=== PATIENT | male | born 1985 | race Caucasian/White ===

== ENCOUNTER 2016-09-14 22:54 | Inpatient (IN) | payer OTHER ==
[2016-09-14 23:30] VITALS: BMI 39.6
--- NOTE | 2016-09-14 23:41 | HP ---
COWS - Scale Resting Pulse: 1= [place] 81-100 Sweatin= Chills/Flushing Restless Observation: 1= Difficult to Sit Still Pupil Size: 0= Normal to Room Light Bone or Joint Aches: 2= Severe Diffuse Aches Runny Nose/ Eye Tearin= Runny Nose/Eyes GI Upset > 30mins: 1= Stomach Cramp Tremor Observation: 2= Slight Tremor Visible Yawning Observation: 1= 1-2x During Session Anxiety or Irritability: 2=Irritable/Anxious Goose Flesh Skin: 3=Piloerection COWS Score: 16 CIWA Score - CIWA Score Nausea/Vomitin-Mild Nausea/No Vomiting Muscle Tremors: 4-Moderate,w/Arms Extend Anxiety: 4-Mod. Anxious/Guarded Agitation: 4-Moderately Restless Paroxysmal Sweats: 1-Minimal Palms Moist Orientation: 1-Uncertain about Date Tacttile Disturbances: 0-None Auditory Disturbances: 0-None Visual Disturbances: 0-None Headache: 2-Mild CIWA-Ar Total Score: 17 Admission ROS S - HPI Chief Complaint: withdrawal sx Allergies/Adverse Reactions: Allergies Allergy/AdvReac Type Severity Reaction Status Date / Time cyclobenzaprine HCl Allergy Severe Hives Verified 09/14/16 23:37 [From Flexeril] History of Present Illness: 30 years old male with long history of opiate xanax klonopin nicotine alcohol dependence has arthritis of the lumbar and cellulitis and bipolar ii is admitted to detox Exam Limitations: No Limitations - Ebola screening Have you traveled outside of the country in the last 21 days: No (N) Have you had contact with anyone from an Ebola affected area: No Have you been sick,other than usual withdrawal symptoms: No Do you have a fever: No - Review of Systems Constitutional: Chills, Changes in sleep, Weight Stable EENT: reports: Other (eye glasses) Respiratory: reports: No Symptoms reported Cardiac: reports: No Symptoms Reported GI: reports: Nausea, Poor Fluid Intake, Indigestion, Abdominal cramping : reports: No Symptoms Reported Musculoskeletal: reports: Back Pain, Joint Pain, Muscle Pain, Neck Pain Integumentary: reports: No Symptoms Reported Neuro: reports: Tremors Endocrine: reports: No Symptoms Reported Hematology: reports: No Symptoms Reported Psychiatric: reports: Judgement Intact Other Systems: Reviewed and Negative Patient History - Patient Medical History Hx Anemia: No Hx Asthma: No Hx Chronic Obstructive Pulmonary Disease (COPD): No Hx Cancer: No Hx Cardiac Disorders: No Hx Congestive Heart Failure: No Hx Hypertension: No Hx Hypercholesterolemia: No Hx Pacemaker: No HX Cerebrovascular Accident: No Hx Seizures: No Hx Dementia: No Hx Diabetes: No Hx Gastrointestinal Disorders: Yes Hx Liver Disease: No Hx Genitourinary Disorders: No Hx Sexually Transmitted Disorders: No Hx Renal Disease (ESRD): No Hx Thyroid Disease: No Hx Human Immunodeficiency Virus (HIV): No (last 2009) Hx Hepatitis C: No Hx Depression: No (insomnia) Hx Suicide Attempt: No Hx Bipolar Disorder: Yes Hx Schizophrenia: No - Patient Surgical History Past Surgical History: Yes Hx Neurologic Surgery: No Hx Cataract Extraction: No Hx Cardiac Surgery: No Hx Lung Surgery: No Hx Breast Surgery: No Hx Breast Biopsy: No Hx Abdominal Surgery: No Hx Appendectomy: No Hx Cholecystectomy: No Hx Genitourinary Surgery: No Hx Orthopedic Surgery: No Other Surgical History: back surgery in Anesthesia Reaction: No - PPD History Previous Implant?: Yes Documented Results: Negative w/o proof Implanted On Prior [facility] Admission?: Yes Date: 10/09/14 PPD to be Administered?: Yes - Smoking Cessation Smoking history: Current every day smoker Have you smoked in the past 12 months: Yes Aproximately how many cigarettes per day: 5 Cigars Per Day: 0 Hx Chewing Tobacco Use: No Initiated information on smoking cessation: Yes 'Breaking Loose' booklet given: 09/14/16 - Substance & Tx. History Hx Alcohol Use: Yes Hx Substance Use: Yes Substance Use Type: Alcohol, Marijuana, Opiates, Tranquilizers Hx Substance Use Treatment: Yes - Substances Abused Alcohol Route: Oral Frequency: 3-6 times per week Amount used: 3pints volka Age of first use: 18 Date of Last Use: 09/13/16 cocaine Route: Injection Frequency: Daily Amount used: 2 g Age of first use: 29 Date of Last Use: 09/14/16 Heroin Route: Injection Frequency: Daily Amount used: 35 bags Age of first use: 25 Date of Last Use: 09/14/16 Alprazolam (Xanax) Route: Oral Frequency: Daily Amount used: 8 mg Age of first use: 28 Date of Last Use: 04/07/17 Benzodiazepine (Klonopin) Route: Oral Frequency: Daily Amount used: 2 mg Age of first use: 17 Date of Last Use: 09/13/16 Family Disease History - Family Disease History Family Disease History: Diabetes: Mother (depression), Heart Disease: Father, Other: Grandparent (bipolar disorder), Mother Admission Physical Exam [facility] - Vital Signs Vital Signs: Vital Signs - 24 hr 09/14/16 23:27 Temperature 97.4 F L Pulse Rate 81 Respiratory 20 Rate Blood Pressure 114/69 - Physical General Appearance: Yes: Appropriately Dressed, Mild Distress (treated at [facility] for cellulitis), Obese, Tremorous, Irritable, Sweating, Anxious HEENTM: Yes: Hearing grossly Normal, Normal ENT Inspection, Normocephalic, Normal Voice Respiratory: Yes: Chest Non-Tender, Lungs Clear, Normal Breath Sounds, No Respiratory Distress, No Accessory Muscle Use Neck: Yes: Supple, Trachea in good position Breast: Yes: Breasts Symetrical Cardiology: Yes: Regular Rhythm, Regular Rate, S1, S2 Abdominal: Yes: Non Tender, Soft Genitourinary: Yes: Within Normal Limits Back: Yes: Normal Inspection Musculoskeletal: Yes: full range of Motion, Gait Steady, Joint swelling (left axillary), Muscle Pain (both dorsal of hands) Extremities: Yes: Normal Range of Motion, Non-Tender, Tremors Neurological: Yes: Alert, Motor Strength 5/5, Normal Response, Depressed Affect Integumentary: Yes: Warm, Erythema (swell, pain), Track Deleon Lymphatic: Yes: Within Normal Limits - Diagnostic (1) Nicotine dependence Current Visit: Yes Status: Acute Qualifiers: Nicotine product type: cigarettes Substance use status: in withdrawal Qualified Code(s): F17.213 - Nicotine dependence, cigarettes, with withdrawal (2) Opioid dependence with withdrawal Current Visit: Yes Status: Acute (3) Alcohol dependence with uncomplicated withdrawal Current Visit: Yes Status: Acute (4) Cocaine dependence with withdrawal Current Visit: Yes Status: Chronic (5) GERD (gastroesophageal reflux disease) Current Visit: Yes Status: Acute Qualifiers: Esophagitis presence: without esophagitis Qualified Code(s): K21.9 - Gastro-esophageal reflux disease without esophagitis (6) Cellulitis Current Visit: Yes Status: Acute Qualifiers: Site of cellulitis: extremity Site of cellulitis of extremity: upper extremity Laterality: unspecified laterality Qualified Code(s): L03.119 - Cellulitis of unspecified part of limb (7) Arthritis, lumbar spine Current Visit: Yes Status: Chronic (8) Bipolar II disorder Current Visit: Yes Status: Suspected Comment: Patient's self-report. Cleared for Admission [facility] - Detox or Rehab [facility] Level of Care: Medically Managed Detox Regimen/Protocol: Methadone/Valium [facility] Breath Alcohol Content Breath Alcohol Content: 0 Urine Drug Screen - Results Drug Screen Negative: No Urine Drug Screen Results: THC-Marijuana, MIKA-Cocaine, OPI-Opiates, BZO- Benzodiazepines, OXY-Oxycodone
[2016-09-14] MEDS ORDERED: IBUPROFEN 400 MG TABLET (FP) PO PRN (23:55)
[2016-09-14] MEDS ORDERED: MAGNESIUM CITRATE 300 ML BOTTLE PO PRN (23:55)
[2016-09-14] MEDS ORDERED: P-EPHED 60MG/TRIPROLIDI 2.5MG TABLET PO PRN (23:55)
[2016-09-14] MEDS ORDERED: NICOTINE POLACRILEX 2 MG GUM BC PRN (23:55)
[2016-09-14] MEDS ORDERED: MAGNESIUM HYDROX 2400MG/30ML ORAL SUSPENSION 30 ML CUP PO PRN (23:55)
[2016-09-14] MEDS ORDERED: MAG HYDROX/AL HYDROX/SIMETH 30 ML UNIT-DOSE CUP PO PRN (23:55)
[2016-09-14] MEDS ORDERED: guaiFENesin/D-METHORPHAN HB 10 ML UNIT-DOSE CUPS PO PRN (23:55)
[2016-09-14] MEDS ORDERED: LOPERAMIDE HCL 2 MG CAPSULE PO PRN (23:55)
[2016-09-14] MEDS ORDERED: MENTHOL/PHENOL 1 EACH UD MM PRN (23:55)
[2016-09-15] MEDS ORDERED: CLINDAMYCIN HCL 300 MG CAPSULE PO SCH
[2016-09-15] MEDS ORDERED: METHADONE HCL 10 MG TABLET (FOR DETOX USE ONLY) PO ONE ×3 (00:09→23:00)
[2016-09-15] MEDS ORDERED: diazePAM 5 MG TABLET PO ONE (00:09)
[2016-09-15] MEDS: diphenhydrAMINE HCL 50 MG CAPSULE PO PRN ×2 (01:49→22:11)
[2016-09-15] MEDS: CLINDAMYCIN HCL 150 MG CAPSULE (FP) PO SCH ×4 (06:05→23:29)
[2016-09-15] MEDS: diazePAM 5 MG TABLET PO SCH ×3 (06:05→22:10)
[2016-09-15] MEDS: GABAPENTIN 300 MG CAPSULE (FP) PO SCH ×3 (06:05→22:10)
[2016-09-15] MEDS: diazePAM 5 MG TABLET PO PRN ×2 (08:32→17:53)
[2016-09-15 10:02] LABS: MCH 27.9 pg (25.7-33.7); MCHC 32.6 g/dl (32.0-35.9); MEAN CELL VOLUME 85.7 fl (80-96); MEAN PLT VOLUME 9.5 fl (7.5-11.1); PLATELET COUNT 219 K/MM3 (134-434); RDW 14.8 % (11.9-15.9); WHITE BLOOD COUNT 8.5 K/mm3 (4.0-10.0)
[2016-09-15] MEDS: RANITIDINE HCL 150 MG TABLET (FP) PO SCH ×2 (10:19→22:10)
[2016-09-15] MEDS: PRENATAL VITAMINS W/ FOLIC ACID TABLET (FP) PO SCH (10:19)
[2016-09-15] MEDS: NICOTINE 14 MG/24 HOURS TOPICAL PATCH TD SCH (10:20)
[2016-09-15 10:40] LABS: ALBUMIN 2.6 g/dl (3.4-5.0); ALK PHOS 65 U/L (45-117); ANION GAP 8 (8-16); BILIRUBIN,TOTAL 0.3 mg/dL (0.2-1.0); CALCIUM 7.9 mg/dL (8.5-10.1); CO2 26 mmol/L (21-32); COCKROFT - GAULT 258.38; CREATININE 0.7 mg/dL (0.7-1.3); GLUCOSE,RANDOM 85 mg/dL (74-106); SGOT/AST 7 U/L (15-37); SGPT/ALT 14 U/L (12-78); TOT PROT 5.6 g/dl (6.4-8.2)
[2016-09-15] MEDS: METHOCARBAMOL 500 MG TABLET PO SCH ×4 (11:24→22:10)
--- NOTE | 2016-09-15 12:51 | CONSULT ---
[facility] Psychiatric Consult - Data Date of interview: 09/15/16 Admission source: [facility] Identifying data: Readmission to [facility] for this 30 y/o male seeking detox treatment for alcohol,xanax,cocaine,heroin and marijuana dependence.Patient is single without children,domiciled and employed as a manager transfer. Substance Abuse History: - Smoking Cessation. Smoking history: Current every day smoker. Have you smoked in the past 12 months: Yes. Aproximately how many cigarettes per day: 5. Cigars Per Day: 0. Hx Chewing Tobacco Use: No. Initiated information on smoking cessation: Yes. 'Breaking Loose' booklet given : 09/14/16. - Substance & Tx. History. Hx Alcohol Use: Yes. Hx Substance Use : Yes. Substance Use Type: Alcohol, Marijuana, Opiates, Tranquilizers. Hx Substance Use Treatment: Yes. - Substances Abused. Alcohol. Route: Oral. Frequency: 3-6 times per week. Amount used: 3pints volka. Age of first use: 18. Date of Last Use: 09/13/16. cocaine. Route: Injection. Frequency: Daily. Amount used: 2 g. Age of first use: 29. Date of Last Use: 09/14/16. * * Heroin. Route: Injection. Frequency: Daily. Amount used: 35 bags. Age of first use: 25. Date of Last Use: 09/14/16. Alprazolam (Xanax). Route: Oral. Frequency: Daily. Amount used: 8 mg. Age of first use: 28. Date of Last Use: 09/14/16. Benzodiazepine (Klonopin). Route: Oral. Frequency: Daily. Amount used: 2 mg. Age of first use: 17. Date of Last Use: 09/13/16. Confirmed by patient. Medical History: History of laminectomy and chronic lower back pain. Psychiatric History: Diagnosed with Bipolar Disorder and prescribed seroquel 100 mg po bid by his primary care doctor.Also prescribed xanax and clonazepam as per self-report.Noted report of ADHD at age 21.Still on psychostimulant medications (adderall 20 mg po bid).Mr Roberts denies history of psychiatric hospitalizations.No background of suicide attempts. Physical/Sexual Abuse/Trauma History: No history. Additional Comment: Urine Drug Screen Results: THC-Marijuana, MIKA-Cocaine, OPI- Opiates, BZO-Benzodiazepines, OXY-Oxycodone.Noted. Mental Status Exam - Mental Status Exam Alert and Oriented to: Time, Place, Person Cognitive Function: Good Patient Appearance: Well Groomed Mood: Nervous, Withdrawn, Anxious Affect: Mood Congruent Patient Behavior: Sedated (light sedation), Fatigued, Cooperative Speech Pattern: Clear Voice Loudness: Normal Thought Process: Goal Oriented Thought Disorder: Not Present Hallucinations: Denies Suicidal Ideation: Denies Homicidal Ideation: Denies Insight/Judgement: Poor Sleep: Poorly, Difficulty falling asleep Appetite: Good Muscle strength/Tone: Normal Gait/Station: Normal Psychiatric Findings - Problem List ([place] 1, 2,3) (1) Alcohol dependence with uncomplicated withdrawal Current Visit: Yes Status: Acute (2) Opioid dependence with withdrawal Current Visit: Yes Status: Acute (3) Cocaine dependence with withdrawal Current Visit: Yes Status: Acute (4) Marijuana dependence Current Visit: Yes Status: Acute (5) Nicotine dependence Current Visit: Yes Status: Acute Qualifiers: Nicotine product type: cigarettes Substance use status: in withdrawal Qualified Code(s): F17.213 - Nicotine dependence, cigarettes, with withdrawal (6) Benzodiazepine dependence Current Visit: Yes Status: Acute (7) Drug-induced mood disorder Current Visit: Yes Status: Acute (8) Bipolar II disorder Current Visit: Yes Status: Chronic Comment: Patient's self-report. (9) GERD (gastroesophageal reflux disease) Current Visit: Yes Status: Chronic Qualifiers: Esophagitis presence: without esophagitis Qualified Code(s): K21.9 - Gastro-esophageal reflux disease without esophagitis (10) Low back pain Current Visit: Yes Status: Chronic (11) Insomnia Current Visit: Yes Status: Acute - Initial Treatment Plan Initial Treatment Plan: Psychoeducation.Detoxification in progress.Seroquel 100 mg po bid.Side effects/benefits discussed with the patient.He is in agreement with this plan of care.Observation.Pharmacy claims are revisited :filled scripts for seroquel and adderall on 09/13/16 @ [facility] # [id number].NO need for scripts at discharge.
[2016-09-15 12:59] LABS: HIV 1 & 2 AB NEGATIVE; HIV 1 AGp24 NEGATIVE
--- NOTE | 2016-09-15 15:00 | PN ---
[facility] CIWA - CIWA Score Nausea/Vomitin-No Nausea/No Vomiting Muscle Tremors: 3 Anxiety: 3 Agitation: 3 Paroxysmal Sweats: 3 Orientation: 0-Oriented Tacttile Disturbances: 1-Very Mild Itch/Numbness Auditory Disturbances: 0-None Visual Disturbances: 0-None Headache: 0-None Present CIWA-Ar Total Score: 13 [facility] COWS - Scale Resting Pulse: 1= [place] 81-100 Sweatin=Flushed/Facial Moisture Restless Observation: 1= Difficult to Sit Still Pupil Size: 0= Normal to Room Light Bone or Joint Aches: 1= Mild Discomfort Runny Nose/ Eye Tearin= Runny Nose/Eyes GI Upset > 30mins: 1= Stomach Cramp Tremor Observation of Outstretched Hands: 2= Slight Tremor Visible Yawning Observation: 1= 1-2x During Session Anxiety or Irritability: 2=Irritable/Anxious Goose Flesh Skin: 0=Smooth Skin COWS Score: 13 S Progress Note (SOAP) Subjective: Sweating,interrupted sleep,restless,tremors,anxiety,muscle aches. Objective: 09/15/16 14:58 Vital Signs - 8 hr 09/15/16 11:05 Temperature 97.3 F L Pulse Rate 94 H Respiratory 20 Rate Blood Pressure 121/76 Laboratory Tests 09/15/16 09/15/16 09/15/16 08:00 08:00 08:00 WBC 8.5 RBC 4.65 Hgb 13.0 Hct 39.9 MCV 85.7 MCHC 32.6 RDW 14.8 Plt Count 219 MPV 9.5 Sodium 143 Potassium 4.2 Chloride 109 H Carbon Dioxide 26 Anion Gap 8 BUN 15 D Creatinine 0.7 D Creat Clearance w eGFR > 60 Random Glucose 85 Calcium 7.9 L Total Bilirubin 0.3 D AST 7 L D ALT 14 D Alkaline Phosphatase 65 Total Protein 5.6 L Albumin 2.6 L D RPR Titer Nonreactive HIV 1&2 Antibody Screen HIV P24 Antigen 09/15/16 08:00 WBC RBC Hgb Hct MCV MCHC RDW Plt Count MPV Sodium Potassium Chloride Carbon Dioxide Anion Gap BUN Creatinine Creat Clearance w eGFR Random Glucose Calcium Total Bilirubin AST ALT Alkaline Phosphatase Total Protein Albumin RPR Titer HIV 1&2 Antibody Screen Negative HIV P24 Antigen Negative labs noted Assessment: 09/15/16 14:59 Withdrawal sx. Plan: Continue detox
--- NOTE | 2016-09-15 16:13 | EKG ---
Test Reason : Blood Pressure : / mmHG Vent. Rate : 093 BPM Atrial Rate : 093 BPM P-R Int : 150 ms QRS Dur : 100 ms QT Int : 340 ms P-R-T Axes : 062 067 040 degrees QTc Int : 422 ms NORMAL SINUS RHYTHM NORMAL ECG NO PREVIOUS ECGS AVAILABLE Confirmed by ALFIE CHATTERJEE MD ([id number]) on 09/15/2016 4:13:00 PM Referred By: Confirmed By:ALFIE CHATTERJEE MD
[2016-09-15] MEDS: ACETAMINOPHEN 325 MG TABLET (FP) PO PRN (17:50)
[2016-09-15] MEDS: THIAMINE HCL 100 MG TABLET (FP) PO SCH (22:09)
[2016-09-15] MEDS: QUEtiapine FUMARATE 100 MG TABLET (FP) PO SCH (22:10)
[2016-09-16] MEDS: ACETAMINOPHEN 325 MG TABLET (FP) PO PRN (04:00)
[2016-09-16] MEDS: GABAPENTIN 300 MG CAPSULE (FP) PO SCH ×3 (05:26→22:14)
[2016-09-16] MEDS: CLINDAMYCIN HCL 150 MG CAPSULE (FP) PO SCH ×4 (05:27→23:08)
[2016-09-16] MEDS: diazePAM 5 MG TABLET PO SCH ×3 (05:27→22:14)
[2016-09-16] MEDS: diazePAM 5 MG TABLET PO PRN ×2 (09:12→17:06)
[2016-09-16] MEDS: METHOCARBAMOL 500 MG TABLET PO SCH ×4 (09:12→22:14)
[2016-09-16] MEDS: NICOTINE 14 MG/24 HOURS TOPICAL PATCH TD SCH (09:13)
[2016-09-16] MEDS: PRENATAL VITAMINS W/ FOLIC ACID TABLET (FP) PO SCH (09:13)
[2016-09-16] MEDS: RANITIDINE HCL 150 MG TABLET (FP) PO SCH ×2 (09:13→22:14)
[2016-09-16] MEDS: QUEtiapine FUMARATE 100 MG TABLET (FP) PO SCH ×2 (09:13→22:14)
[2016-09-16] MEDS ORDERED: METHADONE HCL 10 MG TABLET (FOR DETOX USE ONLY) PO SCH (10:00)
--- NOTE | 2016-09-16 10:32 | PN ---
[facility] CIWA - CIWA Score Nausea/Vomitin-No Nausea/No Vomiting Muscle Tremors: 3 Anxiety: 4-Mod. Anxious/Guarded Agitation: 4-Moderately Restless Paroxysmal Sweats: 3 Orientation: 0-Oriented Tacttile Disturbances: 1-Very Mild Itch/Numbness Auditory Disturbances: 0-None Visual Disturbances: 0-None Headache: 0-None Present CIWA-Ar Total Score: 15 BHS COWS - Scale Resting Pulse: 1= [place] 81-100 Sweatin=Flushed/Facial Moisture Restless Observation: 1= Difficult to Sit Still Pupil Size: 0= Normal to Room Light Bone or Joint Aches: 2= Severe Diffuse Aches Runny Nose/ Eye Tearin= Runny Nose/Eyes GI Upset > 30mins: 2= Nausea/Diarrhea Tremor Observation of Outstretched Hands: 2= Slight Tremor Visible Yawning Observation: 1= 1-2x During Session Anxiety or Irritability: 2=Irritable/Anxious Goose Flesh Skin: 0=Smooth Skin COWS Score: 15 [facility] Progress Note (SOAP) Subjective: Anxiety,tremors,sweating,interrupted sleep,restless,back pain & spasm Objective: 09/16/16 10:31 Vital Signs - 8 hr 09/16/16 09/16/16 09/16/16 03:36 06:42 09:48 Temperature 98.3 F 96.5 F L Pulse Rate 85 91 H Respiratory 18 18 20 Rate Blood Pressure 121/83 131/81 Laboratory Tests 09/15/16 09/15/16 09/15/16 08:00 08:00 08:00 WBC 8.5 RBC 4.65 Hgb 13.0 Hct 39.9 MCV 85.7 MCHC 32.6 RDW 14.8 Plt Count 219 MPV 9.5 Sodium 143 Potassium 4.2 Chloride 109 H Carbon Dioxide 26 Anion Gap 8 BUN 15 D Creatinine 0.7 D Creat Clearance w eGFR > 60 Random Glucose 85 Calcium 7.9 L Total Bilirubin 0.3 D AST 7 L D ALT 14 D Alkaline Phosphatase 65 Total Protein 5.6 L Albumin 2.6 L D RPR Titer Nonreactive HIV 1&2 Antibody Screen HIV P24 Antigen 09/15/16 08:00 WBC RBC Hgb Hct MCV MCHC RDW Plt Count MPV Sodium Potassium Chloride Carbon Dioxide Anion Gap BUN Creatinine Creat Clearance w eGFR Random Glucose Calcium Total Bilirubin AST ALT Alkaline Phosphatase Total Protein Albumin RPR Titer HIV 1&2 Antibody Screen Negative HIV P24 Antigen Negative labs noted Assessment: 09/16/16 10:31 Withdrawal sx. Plan: Continue detox
[2016-09-16] MEDS ORDERED: IBUPROFEN 400 MG TABLET (FP) PO ONE (11:45)
[2016-09-16 16:47] LABS: URINE APPEARANCE CLEAR; URINE BILIRUBIN NEGATIVE (NEGATIVE); URINE BLOOD NEGATIVE (NEGATIVE); URINE COLOR YELLOW; URINE GLUCOSE (UA) NEGATIVE (NEGATIVE); URINE KETONE NEGATIVE (NEGATIVE); URINE LEUK ESTERASE NEGATIVE (NEGATIVE); URINE NITRITE NEGATIVE (NEGATIVE); URINE PROTEIN NEGATIVE (NEGATIVE); URINE UROBILINOGEN NEGATIVE E.U./dl (0.2-1.0)
[2016-09-16] MEDS: IBUPROFEN 400 MG TABLET (FP) PO PRN (17:09)
[2016-09-16] MEDS: LIDOCAINE 5% TOPICAL PATCH TP SCH (21:57)
[2016-09-16] MEDS: THIAMINE HCL 100 MG TABLET (FP) PO SCH (22:13)
[2016-09-17] MEDS: diphenhydrAMINE HCL 50 MG CAPSULE PO PRN ×2 (01:41→23:48)
[2016-09-17] MEDS: diazePAM 5 MG TABLET PO PRN ×5 (01:41→23:48)
[2016-09-17] MEDS: IBUPROFEN 400 MG TABLET (FP) PO PRN ×4 (01:42→22:12)
[2016-09-17] MEDS: CLINDAMYCIN HCL 150 MG CAPSULE (FP) PO SCH ×4 (06:01→23:34)
[2016-09-17] MEDS: GABAPENTIN 300 MG CAPSULE (FP) PO SCH ×3 (06:02→22:08)
[2016-09-17] MEDS: ACETAMINOPHEN 325 MG TABLET (FP) PO PRN ×3 (06:02→20:37)
[2016-09-17] MEDS: PRENATAL VITAMINS W/ FOLIC ACID TABLET (FP) PO SCH (10:07)
[2016-09-17] MEDS: diazePAM 5 MG TABLET PO SCH ×2 (10:07→22:49)
[2016-09-17] MEDS: QUEtiapine FUMARATE 100 MG TABLET (FP) PO SCH ×2 (10:07→22:08)
[2016-09-17] MEDS: METHADONE HCL 5 MG TABLET (FOR DETOX USE ONLY) PO SCH (10:07)
[2016-09-17] MEDS: RANITIDINE HCL 150 MG TABLET (FP) PO SCH ×2 (10:07→22:08)
[2016-09-17] MEDS: METHOCARBAMOL 500 MG TABLET PO SCH ×4 (10:07→22:08)
[2016-09-17] MEDS: NICOTINE 14 MG/24 HOURS TOPICAL PATCH TD SCH (10:08)
[2016-09-17] MEDS: LIDOCAINE 5% TOPICAL PATCH TP SCH (10:10)
--- NOTE | 2016-09-17 15:12 | PN ---
[facility] Progress Note (SOAP) Subjective: Sweating,interrupted sleep,restless Objective: 09/17/16 15:11 Vital Signs - 8 hr 09/17/16 09/17/16 09:59 13:50 Temperature 96.0 F L 96.4 F L Pulse Rate 88 90 Respiratory 20 18 Rate Blood Pressure 135/89 131/79 Laboratory Last Values WBC 8.5 K/mm3 (4.0-10.0) 09/15/16 08:00 RBC 4.65 M/mm3 (4.00-5.60) 09/15/16 08:00 Hgb 13.0 GM/dL (11.7-16.9) 09/15/16 08:00 Hct 39.9 % (35.4-49) 09/15/16 08:00 MCV 85.7 fl (80-96) 09/15/16 08:00 MCHC 32.6 g/dl (32.0-35.9) 09/15/16 08:00 RDW 14.8 % (11.9-15.9) 09/15/16 08:00 Plt Count 219 K/MM3 (134-434) 09/15/16 08:00 MPV 9.5 fl (7.5-11.1) 09/15/16 08:00 Sodium 143 mmol/L (136-145) 09/15/16 08:00 Potassium 4.2 mmol/L (3.5-5.1) 09/15/16 08:00 Chloride 109 mmol/L (98-107) H 09/15/16 08:00 Carbon Dioxide 26 mmol/L (21-32) 09/15/16 08:00 Anion Gap 8 (8-16) 09/15/16 08:00 BUN 15 mg/dL (7-18) D 09/15/16 08:00 Creatinine 0.7 mg/dL (0.7-1.3) D 09/15/16 08:00 Creat Clearance w eGFR > 60 (>60) 09/15/16 08:00 Random Glucose 85 mg/dL (74-106) 09/15/16 08:00 Calcium 7.9 mg/dL (8.5-10.1) L 09/15/16 08:00 Total Bilirubin 0.3 mg/dL (0.2-1.0) D 09/15/16 08:00 AST 7 U/L (15-37) L D 09/15/16 08:00 ALT 14 U/L (12-78) D 09/15/16 08:00 Alkaline Phosphatase 65 U/L (45-117) 09/15/16 08:00 Total Protein 5.6 g/dl (6.4-8.2) L 09/15/16 08:00 Albumin 2.6 g/dl (3.4-5.0) L D 09/15/16 08:00 Urine Color Yellow 09/16/16 16:32 Urine Appearance Clear 09/16/16 16:32 Urine pH 7.0 (5.0-8.0) D 09/16/16 16:32 Ur Specific [place] 1.026 (1.001-1.035) 09/16/16 16:32 Urine Protein Negative (NEGATIVE) 09/16/16 16:32 Urine Glucose (UA) Negative (NEGATIVE) 09/16/16 16:32 Urine Ketones Negative (NEGATIVE) 09/16/16 16:32 Urine Blood Negative (NEGATIVE) 09/16/16 16:32 Urine Nitrite Negative (NEGATIVE) 09/16/16 16:32 Urine Bilirubin Negative (NEGATIVE) 09/16/16 16:32 Urine Urobilinogen Negative E.U./dl (0.2-1.0) 09/16/16 16:32 Ur Leukocyte Esterase Negative (NEGATIVE) 09/16/16 16:32 RPR Titer Nonreactive (NONREACTIVE) 09/15/16 08:00 HIV 1&2 Antibody Screen Negative 09/15/16 08:00 HIV P24 Antigen Negative 09/15/16 08:00 labs noted Assessment: 09/17/16 15:12 Withdrawal sx. Plan: Continue detox
[2016-09-17] MEDS: THIAMINE HCL 100 MG TABLET (FP) PO SCH (22:07)
[2016-09-18] MEDS: CLINDAMYCIN HCL 150 MG CAPSULE (FP) PO SCH ×4 (05:32→23:24)
[2016-09-18] MEDS: GABAPENTIN 300 MG CAPSULE (FP) PO SCH ×3 (05:33→22:23)
[2016-09-18] MEDS: IBUPROFEN 400 MG TABLET (FP) PO PRN ×3 (05:33→17:32)
[2016-09-18] MEDS: hydrOXYzine PAMOATE 50 MG CAPSULE (FP) PO PRN ×5 (05:33→22:41)
--- NOTE | 2016-09-18 09:59 | PN ---
S Progress Note (SOAP) Subjective: ANXIETY, INTERMITTENT SLEEP. SCAB ON LEFT ELBOW RE-INJURED AND BLEEDING. Objective: 09/18/16 09:57 Vital Signs Temperature 95.9 F L 09/18/16 06:50 Pulse Rate 79 09/18/16 06:50 Respiratory Rate 18 09/18/16 06:50 Blood Pressure 115/82 09/18/16 06:50 O2 Sat by Pulse Oximetry (%) BLEEDING OPEN SCAB ON LEFT ELBOW. Assessment: 09/18/16 09:57 WITHDRAWAL SX Plan: CONTINUE DETOX BACITRACIN OINTMENT APPLY DIRECTED
[2016-09-18] MEDS: METHOCARBAMOL 500 MG TABLET PO SCH ×4 (10:06→22:23)
[2016-09-18] MEDS: QUEtiapine FUMARATE 100 MG TABLET (FP) PO SCH ×2 (10:06→22:48)
[2016-09-18] MEDS: RANITIDINE HCL 150 MG TABLET (FP) PO SCH ×2 (10:06→22:23)
[2016-09-18] MEDS: PRENATAL VITAMINS W/ FOLIC ACID TABLET (FP) PO SCH (10:06)
[2016-09-18] MEDS: diazePAM 5 MG TABLET PO SCH ×2 (10:07→22:23)
[2016-09-18] MEDS: LIDOCAINE 5% TOPICAL PATCH TP SCH (10:08)
[2016-09-18] MEDS: NICOTINE 14 MG/24 HOURS TOPICAL PATCH TD SCH ×2 (10:09→13:35)
[2016-09-18] MEDS: METHADONE HCL 5 MG TABLET (FOR DETOX USE ONLY) PO SCH (10:11)
[2016-09-18] MEDS: BACITRACIN 0.9 GM PACKET TP SCH ×2 (10:11→22:23)
[2016-09-18] MEDS: diphenhydrAMINE HCL 25 MG CAPSULE (FP) PO PRN ×4 (10:49→22:41)
[2016-09-18] MEDS: HALOPERIDOL 2 MG TABLET PO PRN ×4 (10:49→22:42)
[2016-09-18] MEDS: ACETAMINOPHEN 325 MG TABLET (FP) PO PRN ×2 (13:30→19:57)
[2016-09-18] MEDS: THIAMINE HCL 100 MG TABLET (FP) PO SCH (22:22)
[2016-09-19] MEDS: GABAPENTIN 300 MG CAPSULE (FP) PO SCH (05:41)
[2016-09-19] MEDS: IBUPROFEN 400 MG TABLET (FP) PO PRN (05:41)
[2016-09-19] MEDS: CLINDAMYCIN HCL 150 MG CAPSULE (FP) PO SCH (05:41)
[2016-09-19] MEDS: hydrOXYzine PAMOATE 50 MG CAPSULE (FP) PO PRN (05:42)
[2016-09-19] MEDS: HALOPERIDOL 2 MG TABLET PO PRN (05:45)
[2016-09-19] MEDS: diphenhydrAMINE HCL 25 MG CAPSULE (FP) PO PRN (05:45)
[2016-09-19 06:42] VITALS: BP 126/78; PULSE 75; TEMP 95.7
--- NOTE | 2016-09-19 09:18 | DS ---
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 LBP ADHD - Physical Exam Results Vital Signs: Vital Signs Temperature 95.7 F L 09/19/16 06:41 Pulse Rate 75 09/19/16 06:41 Respiratory Rate 18 09/19/16 06:41 Blood Pressure 126/78 09/19/16 06:41 O2 Sat by Pulse Oximetry (%) Pertinent Admission Physical Exam Findings: WITHDRAWAL SX - Treatment Hospital Course: Detox Protocol Followed, Detoxed Safely, Responded well, Discharged Condition Good - Medication Discharge Medications: Ambulatory Orders Amphet Asp/Amphet/D-Amphet [Adderall 20 mg Tablet] 20 mg PO BID 10/07/14 Clonazepam [Klonopin -] 1 mg PO DAILY 10/07/14 Oxycodone Sr [Oxycontin -] 80 mg PO BID 10/07/14 Gabapentin [Neurontin -] 300 mg PO TID #90 capsule 10/12/14 Methocarbamol [Robaxin -] 500 mg PO QID #40 tablet 10/12/14 - Diagnosis (1) Alcohol dependence with uncomplicated withdrawal Status: Acute (2) Attention deficit disorder with hyperactivity syndrome Status: Chronic (3) Benzodiazepine dependence Status: Acute (4) Drug-induced mood disorder Status: Acute (5) GERD (gastroesophageal reflux disease) Status: Chronic Qualifiers: Esophagitis presence: without esophagitis Qualified Code(s): K21.9 - Gastro-esophageal reflux disease without esophagitis (6) Nicotine dependence Status: Acute Qualifiers: Nicotine product type: cigarettes Substance use status: in withdrawal Qualified Code(s): F17.213 - Nicotine dependence, cigarettes, with withdrawal (7) Opioid dependence with withdrawal Status: Acute (8) Arthritis, lumbar spine Status: Chronic (9) Cocaine dependence with withdrawal Status: Chronic (10) Low back pain Status: Chronic (11) History of back surgery Status: Resolved (12) Marijuana dependence Status: Acute - AMA Did Patient Leave Against Medical Advice: No
[2016-09-19] MEDS ORDERED: diazePAM 5 MG TABLET PO SCH (10:00)
[2016-09-19] MEDS ORDERED: METHADONE HCL 10 MG TABLET (FOR DETOX USE ONLY) PO SCH (10:00)
[2016-09-20] MEDS ORDERED: METHADONE HCL 5 MG TABLET (FOR DETOX USE ONLY) PO SCH (06:00)
== END 2016-09-19 06:37 | disposition left against medical advice (07) | DRG 770 ==
LOC: YASAS 22:54 → Y3N 23:32
PROVIDERS: ADMIT Internal Medicine; ATTEND Internal Medicine
PROC: HZ2ZZZZ Detoxification Services for Substance Abuse Treatment (ICD-10-PCS; principal; 2016-09-19)
DX: F11.23 Opioid dependence with withdrawal (principal); F13.230 Sedative, hypnotic or anxiolytic dependence with withdrawal, uncomplicated; F14.20 Cocaine dependence, uncomplicated; F12.20 Cannabis dependence, uncomplicated; F17.213 Nicotine dependence, cigarettes, with withdrawal; F19.24 Other psychoactive substance dependence with psychoactive substance-induced mood disorder; F90.8 Attention-deficit hyperactivity disorder, other type; M54.5 Low back pain; G89.29 Other chronic pain; M47.896 Other spondylosis, lumbar region; F31.81 Bipolar II disorder; G47.00 Insomnia, unspecified; K21.9 Gastro-esophageal reflux disease without esophagitis
CPT/HCPCS: 36415; 80053; 81003; 85027; 86593; 87389; 93005; 93010